=== PATIENT | male | born 1975 | race Caucasian/White ===

== ENCOUNTER 2016-12-10 12:04 | Emergency (ER) | payer MEDICAID, OTHER ==
[2016-12-10 12:18] VITALS: BP 139/85
--- NOTE | 2016-12-10 12:53 | ERNOTE ---
Lower Extremity HPI - General Time Seen by Provider: 12/10/16 12:10 Source: patient Exam Limitations: no limitations - Immun/Allergies/Home Medications Immunizations: IMMUNIZATION HX Immunizations Up to Date Yes History of Influenza Vaccine Yes Allergies/Adverse Reactions: Allergies Allergy/AdvReac Type Severity Reaction Status Date / Time No Known Allergies Allergy Verified 12/10/16 12:18 Home Medications: HOME MEDICATIONS HYDROcodone/ACETAMINOPHEN [[place] 5-325] 1 - 2 tab PO QID PRN #20 tab 12/10/16 [ Last Taken Unknown] - History of Present Illness Narrative: He shouldn't fell off of a ladder last night and sustained an injury to his right foot. He did not seek any medical attention at that time. Patient comes in now for pain and swelling in his right foot. Taken any medication. He denies having any comorbid conditions. Review of Systems - Review of Systems Constitutional: Present: no symptoms reported EYE: Present: no symptoms reported ENT: Present: no symptoms reported Respiratory: Present: no symptoms reported Cardiology: Present: no symptoms reported Gastrointestinal/Abdominal: Present: no symptoms reported Genitourinary: Present: no symptoms reported Musculoskeletal: Present: See HPI Skin: Present: no symptoms reported Neurological: Present: no symptoms reported - Patient's Past Medical History Patient History - Cardiac/Respiratory: No pertinent hx Patient History - Cancer: No Hx of Cancer Patient History - Surgical Procedures: Appendectomy Patient History - Other: None - Social History Living Situations: home Psych History: No pertinent hx Smoking Status: Current every day smoker Alcohol Use: none Drug Use: none - Immunizations Immunizations Up to Date: Yes History of Influenza Vaccine: Yes Physical Exam - Physical Exam General Appearance: Present: wd/wn, alert, no apparent distress Neck: Present: normal inspection Respiratory: Present: no respiratory distress, normal breath sounds, no accessory muscle use, chest nontender, lungs clear Cardiovascular/Chest: Present: regular rate, rhythm, no murmur, normal peripheral pulses Extremity Exam: Present: other - there is swelling of the dorsal aspect of the right foot. There is slight ecchymosis in the dorsal aspect of the right midfoot. Tender to palpation in the corresponding regions. ED Progress - Vital Signs Vital Signs: Vital Signs 12/10/16 12:11 Temperature 36.7 C Pulse Rate 97 Respiratory 16 Rate Blood Pressure 139/85 O2 Sat by Pulse 98 Oximetry - X-Ray X-Ray #1 X-Ray: foot - there is a fracture of the fourth metatarsal which is nondisplaced. - Progress/Reassessment Chief Complaint: Foot Injury/Pain Plan - Plan Plan: This case was discussed with Dr. Crow patient will be placed in a walking boot and discharged home with pain medication the patient is to follow-up with Dr. Crow next week. Departure Clinical Impression: Fracture of metatarsal bone of right foot Qualifiers: Encounter type: initial encounter Metatarsal bone: fourth Fracture type: closed Fracture alignment: nondisplaced Qualified Code(s): S92.344A - Nondisplaced fracture of fourth metatarsal bone, right foot, initial encounter for closed fracture - Departure Disposition: Home self-care Condition: Good Instructions: Metatarsal Fracture With [facility] Additional Instructions: To the orthopedic clinic next week and follow-up there with Dr. Crow Referrals: Noah Villasenor MD [Primary Care Provider] - Prescriptions: HYDROcodone/ACETAMINOPHEN [[place] 5-325] 1 - 2 tab PO QID PRN #20 tab PRN Reason: Pain
[2016-12-10] MEDS ORDERED: HYDROcodone/ACETAMINOPHEN 1 EACH TABLET PO ONE (13:03)
[2016-12-10] MEDS ORDERED: HYDROcodone/ACETAMINOPHEN 1 EACH TABLET ONE (13:04)
== END 2016-12-10 13:29 | disposition home or self-care (01) ==
LOC: ER 12:04
PROC: 2W3SX1Z Immobilization of Right Foot using Splint (ICD-10-PCS; principal; 2016-12-10)
DX: S92.344A Nondisplaced fracture of fourth metatarsal bone, right foot, initial encounter for closed fracture (principal); W11.XXXA Fall on and from ladder, initial encounter; Y93.9 Activity, unspecified; Y92.9 Unspecified place or not applicable; Y99.9 Unspecified external cause status; Z72.0 Tobacco use

== ENCOUNTER 2016-12-12 22:45 | Emergency (ER) | payer OTHER ==
--- NOTE | 2016-12-12 23:47 | ERNOTE ---
Lower Extremity HPI - Narrative Date of Service: 12/12/16 - General Lower Extremities Pain: foot: right Source: patient - Immun/Allergies/Home Medications Immunizations: IMMUNIZATION HX Immunizations Up to Date Yes History of Influenza Vaccine Yes Hx Pneumococcal Vaccination No Allergies/Adverse Reactions: Allergies Allergy/AdvReac Type Severity Reaction Status Date / Time No Known Allergies Allergy Verified 12/10/16 12:18 Home Medications: HOME MEDICATIONS HYDROcodone/ACETAMINOPHEN [[place] 5-325] 1 - 2 tab PO QID PRN #20 tab 12/10/16 [ Last Taken Unknown] - History of Present Illness Narrative: RECHECK OF BROKEN FOOT. SEEN HERE TWO DAYS AGO AND IS ON NORCO FOR 4TH METATARSAL FX =NON DISPLACED. PUT IN WALKING BOOT, GIVEN CRUTCHES . SAYS HE IS ALSO TAKING IBUPROFEN BUT DOES NOT SOUND LIKE HE IS STAYING OFF HIS FOOT AND ELEVATING AND USING ICE . NO NEW INJURY. IS SUPPOSED TO F/U WITH DR RAMSEY LATER TODAY DROVE HIMSELF HERE Review of Systems - Review of Systems Constitutional: Present: See HPI Musculoskeletal: Present: See HPI, joint pain All Other Systems: All systems neg except as marked - Patient's Past Medical History Patient History - Medical: No pertinent hx Patient History - Cardiac/Respiratory: No pertinent hx Patient History - Cancer: No Hx of Cancer Patient History - Surgical Procedures: Appendectomy Patient History - Other: None - Social History Living Situations: home Abuse History: No History of abuse Psych History: No pertinent hx Smoking Status: Current every day smoker Have you smoked in the past 12 months: Yes Do you dip or chew tobacco: No Patient requests Smoking Cessation Consult: No Initiate information on Smoking Cessation: No Alcohol Use: none Drug Use: none - Immunizations Immunizations Up to Date: Yes Hx Pneumococcal Vaccination: No History of Influenza Vaccine: Yes Physical Exam - Physical Exam General Appearance: Present: wd/wn, alert, no apparent distress Extremity Exam: Present: normal except - - R. LOWER LEG IS IN WALKING BOOT. WHEN BOOT REMOVED HE HAS MODERATE SWELLING OF THE DORSUM OF THE FOOT WITH A SMALL AMOUNT OF BRUISING BUT NO DEFORMITY NOTED. HE IS TENDER TO TOUCH OVER THE FOURTH METATARSAL YOU WOULD EXPECT. REFILL AND SENSATION IS GOOD. NL. D.PEDIS PULSE. ED Progress - Vital Signs Vital Signs: Vital Signs 12/12/16 22:49 Temperature 36.8 C Pulse Rate 80 Respiratory 14 Rate Blood Pressure 119/77 O2 Sat by Pulse 95 Oximetry - Progress/Reassessment Chief Complaint: Foot Injury/Pain Plan - Plan Plan: EXPLAINED THAT THIS IS NORMAL POST FX FINDINGS EXCEPT THAT HE OBVIOUSLY HAS NOT BEEN ELEVATING THE FOOT. REINFORCED PROPER CARE ( ICE AND ELEVATION IN ADDITION TO HIS MEDS AND THAT THE MEDS WILL NOT, CAN NOT , AND ARE NOT SUPPOSED, TO TAKE ALL HIS PAIN AWAY. IT IS OK TO ALSO USE THE IBUPROFEN. HE SEEMED TO UNDERSTAND. Departure Clinical Impression: Foot pain, right Fracture of metatarsal bone of right foot Qualifiers: Encounter type: sequela Metatarsal bone: fourth Fracture type: closed Fracture alignment: nondisplaced Qualified Code(s): S92.344S - Nondisplaced fracture of fourth metatarsal bone, right foot, sequela - Departure Disposition: Home Follow Up Needed Condition: Good Instructions: Metatarsal Fracture Additional Instructions: YOU HAVE THE TYLENOL AND HYDROCODONE, USE IT DIRECTED. IT IS OK TO ALSO ADD THE ANTI-INFLAMMATORY MEDICATION LIKE IBUPROFEN , LIKE YOU DID BEFORE YOU GOT HERE. IT IS MOST IMPORTANT TO KEEP YOUR FOOT ELEVATED ABOVE THE LEVEL OF YOUR HEART AND STAY OFF OF IT EXCEPT TO GO TO THE BATHROOM. YOU NEED TO USE ICE 30 MINS EVERY 4 HOUR TO HELP WITH THE SWELLING. IT WILL TAKE SEVERAL DAYS UNTIL THE PAIN DECREASES. REMEMBER, NO DRIVING OR DRINKING ALCOHOL, OR WORKING WITH MACHINERY WHILE YOU ARE TAKING THE NORCO WHICH HAS AN OPIATE IN IT. Referrals: Noah Villasenor MD [Primary Care Provider] -
[2016-12-13 00:30] VITALS: BP 124/76
== END 2016-12-13 00:17 | disposition home or self-care (01) ==
LOC: ER 22:45
DX: S92.344 Nondisplaced fracture of fourth metatarsal bone, right foot (principal); Z72.0 Tobacco use